=== PATIENT | male | born 1950 | race Caucasian/White ===

== ENCOUNTER 2016-04-10 16:27 | Inpatient (IN) ==
[2016-04-10] MEDS ORDERED: MOM Conc 10 ML UD.LIQ PO PRN (18:15)
[2016-04-10] MEDS ORDERED: Dextrose Gel 15 GM PO PRN ×2 (18:35)
[2016-04-10] MEDS ORDERED: D5% in Water 1,000 ML IV PRN (18:35)
[2016-04-10] MEDS ORDERED: *HR* Dextrose 50 % in Water (Syg) 50 ML SYRINGE IVP PRN (18:35)
[2016-04-10] MEDS: *HR* HYDROcodone/Acet 5/325 mg TABLET PO PRN (20:14)
[2016-04-10] MEDS: *HR* Ticagrelor 90 MG TABLET PO SCH (20:14)
[2016-04-10] MEDS: Insulin LISPRO 300 UNITS/3 ML VIAL SQ SCH (20:21)
[2016-04-10] MEDS ORDERED: Insulin DETEMIR 100 UNIT/ML per UNIT SQ ONE (21:00)
[2016-04-10] MEDS ORDERED: INSULIN ASPART 1 UNIT SQ SCH (21:00)
[2016-04-10] MEDS: 0.9 % Sodium Chloride 1,000 ML IV SCH (22:37)
[2016-04-10] MEDS: Ondansetron 4 MG/2 ML VIAL IVP PRN (22:37)
[2016-04-10] MEDS: Temazepam 15 MG CAPSULE PO PRN (22:52)
[2016-04-11] MEDS: 0.9 % Sodium Chloride 1,000 ML IV SCH ×2 (00:18→00:19)
[2016-04-11] MEDS: *HR* HYDROcodone/Acet 5/325 mg TABLET PO PRN ×3 (05:37→20:42)
[2016-04-11 05:38] LABS: Basophils % 0.2 %; Eosinophils # 0.1 K/mcL (0.0-0.6); Eosinophils % 1.3 %; Hematocrit 21.5 % (37.5-50.1); Hemoglobin 7.3 g/dL (12.9-16.9); Immature Granulocytes % 0.3 % (0-4); Lymphocytes # 0.7 K/mcL (0.6-4.6); Lymphocytes % 7.5 %; Mean Corpuscular Hemoglobin 30.9 pg (28.0-33.3); Mean Corpuscular Volume 91.1 fL (83.0-100.0); Mean Platelet Volume 10.4 fL (9.4-12.4); Monocytes # 1.2 K/mcL (0.0-1.3); Neutrophils # 7.2 K/mcL (1.6-8.9); Platelet Count 186 K/mcL (140-400); Red Blood Count 2.36 M/mcL (4.19-5.50); Red Cell Distribution Width 15.3 % (11.5-14.5); Segmented Neutrophils % 77.7 %
[2016-04-11 05:49] LABS: Calcium 7.9 mg/dL (8.6-10.8); Potassium 4.5 mEq/L (3.5-4.5)
[2016-04-11] MEDS: Folic Acid 1 MG TABLET PO SCH (08:12)
[2016-04-11] MEDS: Aspirin Enteric Coated 81 MG Tablet PO SCH (08:12)
[2016-04-11] MEDS: *HR* Ticagrelor 90 MG TABLET PO SCH ×2 (08:13→20:40)
[2016-04-11] MEDS: Furosemide 40 MG TABLET PO SCH (08:13)
[2016-04-11] MEDS: (Vit A/Vit C/Vit E/Zinc/Copper [Preservision Areds Ta) PO SCH (08:14)
[2016-04-11] MEDS: Insulin LISPRO 300 UNITS/3 ML VIAL SQ SCH ×4 (08:14→20:41)
--- NOTE | 2016-04-11 11:19 | Internal Med History&Physical ---
Date of Encounter: 04/11/16 Time of Encounter: 11:17 Assessment and Plan (1) Left displaced femoral neck fracture Current visit: No Status: Acute Patient had a femoral neck fracture was taken for ORIF after a cardiology consult. Patient was considered to be a high risk due to his multiple medical problems Internal Medicine - H&P: HPI Chief complaint: Patient had a fractured hip was taken to the OR for ORIF Admitted From: Hospital to Hospital Transfer Plans for Post Hospital Care: Home History of present illness: Mr. Todd is a 65 year old male Past Med Surg Social Fam HX - Past Medical History Medical history: CHF, diabetes, hyperlipidemia, hypertension, myocardial infarction, renal disease, thyroid disease Psychiatric history: no psych history - Social History Smoking Status: Smoker, status unknown Smokeless Tobacco Status: No (FORMER SMOKER. NOW OCCASIONAL) Alcohol use: occasionally Drug use: none - Family History Father Adopted: No Living Status: Hx Family Cardiac Disorders: Yes Internal Medicine - H&P: Meds Aspirin [Lo-Dose Aspirin EC] 81 mg PO DAILY 04/03/16 [History] Atorvastatin Calcium 80 mg PO DAILY 04/03/16 [History] Calcitriol [Rocaltrol] 0.25 mcg PO DAILY 04/03/16 [History] Clopidogrel [Plavix] 75 mg PO DAILY 04/03/16 [History] Hydralazine HCl 50 mg PO TID 04/03/16 [History] Insulin ASPART [Novolog] 0 unit SQ TID 04/03/16 [History] Insulin Glargine,Hum.rec.anlog [Lantus Solostar] 22 unit SQ HS 04/03/16 [History ] Isosorbide DInitrate [Isordil] 20 mg PO BID 04/03/16 [History] Metoprolol [Lopressor] 25 mg PO BID 04/03/16 [History] Tamsulosin HCl [Flomax] 0.4 mg PO DAILY 04/03/16 [History] Ticagrelor [Brilinta] 90 mg PO BID 04/03/16 [History] Vit A/Vit C/Vit E/Zinc/Copper [Preservision Areds Tablet] 1 each PO DAILY [History] Allopurinol [Zyloprim 100 MG] 100 mg PO DAILY #30 tablet 04/10/16 [Rx] Ferrous Sulfate 325 mg PO BIDWM #90 tablet 04/10/16 [Rx] Folic Acid 1 mg PO DAILY #60 tablet 04/10/16 [Rx] Furosemide [Lasix] 40 mg PO DAILY #30 tablet 04/10/16 [Rx] HYDROcodone/Acet 5/325 mg [[place] 5-325 mg] 1 tab PO Q4HR PRN #30 tablet [Rx] MOM Conc [MILK OF MAGNESIA conc] 5 ml PO HS PRN 30 Days 04/10/16 [Rx] Sodium Bicarbonate 650 mg PO BID #120 tablet 04/10/16 [Rx] Temazepam [Restoril] 15 mg PO HS PRN #30 capsule 04/10/16 [Rx] Allergies Penicillins [PCN] Allergy (Verified 04/03/16 06:24) Unconscious All Systems PM: A 10-system review of systems was performed and is negative for pertinent findings except as documented above in the HPI. - Constitutional Vitals: Temp Pulse Resp BP Pulse Ox 97.7 F 83 20 144/79 99 04/11/16 07:24 04/11/16 07:24 04/11/16 07:24 04/11/16 07:24 04/11/16 07:24 - Head Head exam: Present: atraumatic, normal inspection, normocephalic - Neck Neck exam general surgery: Present: supple, trachea midline. Absent: lymphadenopathy - Respiratory Respiratory exam: Present: CTAB. Absent: accessory muscle use, rales, rhonchi, wheezes - Cardiovascular Cardiovascular exam: Present: RRR, +S1, +S2. Absent: diastolic murmur, gallop, rubs, systolic murmur - GI/Abdominal GI/Abdominal exam: Present: normal bowel sounds, soft, no peritoneal signs. Absent: distended, tenderness Internal Med - H&P Results - Labs CBC & Chem 7: 04/11/16 05:15 04/11/16 05:15 Labs: Short CBC 04/11/16 Range/Units 05:15 WBC 9.2 (4.3-11.1) K/mcL Hgb 7.3 L (12.9-16.9) g/dL Hct 21.5 L (37.5-50.1) % Plt Count 186 (140-400) K/mcL Neutrophils # 7.2 (1.6-8.9) K/mcL BMP 04/11/16 05:15 Sodium 130 L Potassium 4.5 Chloride 101 Carbon Dioxide 20 BUN 67 H Creatinine 2.73 H Glucose 142 H Calcium 7.9 L Chronic renal failure as noted we will follow BUN and creatinine.
[2016-04-11] MEDS: Ondansetron 4 MG/2 ML VIAL IVP PRN (17:30)
[2016-04-11] MEDS: Insulin DETEMIR 100 UNIT/ML X5UNITS SQ SCH (20:41)
[2016-04-12] MEDS: *HR* HYDROcodone/Acet 5/325 mg TABLET PO PRN ×2 (06:47→10:44)
[2016-04-12] MEDS: Insulin LISPRO 300 UNITS/3 ML VIAL SQ SCH ×4 (08:27→20:39)
[2016-04-12] MEDS: Aspirin Enteric Coated 81 MG Tablet PO SCH (08:34)
[2016-04-12] MEDS: Folic Acid 1 MG TABLET PO SCH (08:34)
[2016-04-12] MEDS: Furosemide 40 MG TABLET PO SCH (08:34)
[2016-04-12] MEDS: *HR* Ticagrelor 90 MG TABLET PO SCH ×2 (08:34→20:34)
[2016-04-12] MEDS: (Vit A/Vit C/Vit E/Zinc/Copper [Preservision Areds Ta) PO SCH (08:34)
--- NOTE | 2016-04-12 11:51 | Internal Med Progress Note ---
Date of Encounter: 04/12/16 Time of Encounter: 11:48 - Assessment and plan (1) Left displaced femoral neck fracture Current Visit: No Status: Acute Assessment and plan: Patient's been through a lot lately with hip fracture and heart attack and kidney failure. And is very debilitated. - Time Spent With Patient less than 15 minutes - Subjective Interval history: Patient is still very weak and somewhat confused. I discussed the use of the forward catheter with his and she stated that I read the notes that he had urinary retention after surgery. It has been a month he has been seen by urologist and carbon brush maker. I think it is time to remove Zhang catheter and see and watches output. - Constitutional Vitals: Temp Pulse Resp BP Pulse Ox 98.8 F 86 18 93/52 96 04/12/16 07:35 04/12/16 07:35 04/12/16 11:00 04/12/16 07:35 04/12/16 07:35 - Head Head exam: Present: atraumatic, normal inspection, normocephalic - Neck Neck exam general surgery: Present: supple, trachea midline. Absent: lymphadenopathy - Respiratory Respiratory exam: Present: CTAB. Absent: accessory muscle use, rales, rhonchi, wheezes - Cardiovascular Cardiovascular exam: Present: RRR, +S1, +S2. Absent: diastolic murmur, gallop, rubs, systolic murmur - Skin Skin exam: Present: dry, intact, pallor (Patient has a bit of sallow color to check a bilirubin.) Internal Medicine: Result - Labs CBC & Chem 7: 04/11/16 05:15 04/11/16 05:15 Labs: the patient's patient is a stage IV chronic renal failure. Dialysis noted Consult Discharge Plan - Plan Referrals: Pina Curtis, STAFF HOME THERAPY RN [Primary Care Provider] -
[2016-04-12] MEDS: Ondansetron 4 MG/2 ML VIAL IVP PRN (11:56)
--- NOTE | 2016-04-12 12:21 | Physical Med Progress Note ---
Date of Encounter: 04/12/16 Time of Encounter: 12:16 Physical Medicine-PN: Subj Interval history: PMR PCC note Mr. Todd is s/p left THR. He is able to ambulate to therapy with a walker. He fatigues easily. Patient able to stand for 10-12 minutes. Patient with significant lower limb pitting edema. Patient has difficulty maintaining hip precautions. Currently [place] for ADLs. Patient only able to tolerate 1 hour of therapy a day. Plan to switch patient to swing for lower intensity therapy. Will continue with PT/OT/TR to address gait, safety, ADLs and endurance. Patient is severely deconditioned due to his multiple medical illnesses. - Constitutional Vitals: Vital Signs Temp Pulse Resp BP Pulse Ox 04/12/16 11:00 18 04/12/16 07:35 98.8 F 86 17 93/52 96 04/11/16 18:55 98.3 F 95 17 115/54 96 04/11/16 17:43 97.8 F 101 16 147/66 98 Intake and Output 04/11/16 04/12/16 04/12/16 23:59 07:59 15:59 Intake Total 200 / 200 500 / 500 500 / 500 Output Total 1075 / 1075 1050 / 1050 Balance -875 / -875 -550 / -550 500 / 500 Intake: Oral 200 / 200 500 / 500 500 / 500 Output: Urine 200 / 200 Catheter 875 / 875 1050 / 1050 Other: Meal Dinner Breakfast Percent of Meal Consumed 40% 50% Weight 77.156 kg Blood Glucose* 382 73 154 Patient Weight 04/12/16 23:59 Weight 77.156 kg Physical Medicine-PN: Obj Data - Labs CBC & Chem 7: 04/11/16 05:15 04/11/16 05:15 Labs: Laboratory Results - last 24 hr 04/11/16 04/11/16 04/12/16 16:38 20:30 07:14 POC Glucose 365 H 382 H 73 04/12/16 11:09 POC Glucose 154 H Consult Discharge Plan - Plan Referrals: Pina Curtis, THREAD TOOL GRINDER SET UP OPERATOR [Primary Care Provider] -
[2016-04-12] MEDS ORDERED: Ondansetron 4 MG/2 ML VIAL IVP PRN (14:19)
[2016-04-12] MEDS: Insulin DETEMIR 100 UNIT/ML X5UNITS SQ SCH (20:36)
[2016-04-12] MEDS: Temazepam 15 MG CAPSULE PO PRN (20:37)
[2016-04-13 05:54] LABS: Albumin/Globulin Ratio 0.8 (1.1-2.2); Bilirubin,Direct 0.3 mg/dL (0.0-0.5); Bilirubin,Indirect 0.4 mg/dL (0.0-1.2); Bilirubin,Total 0.7 mg/dL (0.2-1.2); Globulin 2.5 g/dL (2.4-3.5); Total Protein 4.5 g/dL (6.0-8.3)
[2016-04-13] MEDS: Aspirin Enteric Coated 81 MG Tablet PO SCH (08:21)
[2016-04-13] MEDS: *HR* Ticagrelor 90 MG TABLET PO SCH ×2 (08:21→20:53)
[2016-04-13] MEDS: Folic Acid 1 MG TABLET PO SCH (08:21)
[2016-04-13] MEDS: Furosemide 40 MG TABLET PO SCH (08:22)
[2016-04-13] MEDS: (Vit A/Vit C/Vit E/Zinc/Copper [Preservision Areds Ta) PO SCH (08:22)
[2016-04-13] MEDS: Insulin LISPRO 300 UNITS/3 ML VIAL SQ SCH ×4 (08:24→20:47)
[2016-04-13] MEDS: *HR* HYDROcodone/Acet 5/325 mg TABLET PO PRN ×2 (08:37→11:50)
--- NOTE | 2016-04-13 13:27 | Internal Med Progress Note ---
Date of Encounter: 04/13/16 Time of Encounter: 13:25 - Assessment and plan (1) Left displaced femoral neck fracture Current Visit: Yes Status: Acute Assessment and plan: She is working with PT OT and TR. - Time Spent With Patient less than 15 minutes - Subjective Interval history: Patient's much brighter today's colors better at all. I did check bilirubin it was okay. Shallow color probably just due to his multiple medical problems. Proteins were low at 4.5 and albumin was low at 2. Start him on ensure HP. - Constitutional Vitals: Temp Pulse Resp BP Pulse Ox 98.4 F 89 16 115/62 95 04/13/16 07:29 04/13/16 07:29 04/13/16 09:00 04/13/16 07:29 04/13/16 07:29 - Head Head exam: Present: atraumatic, normal inspection, normocephalic - Neck Neck exam general surgery: Present: supple, trachea midline. Absent: lymphadenopathy - Respiratory Respiratory exam: Present: CTAB. Absent: accessory muscle use, rales, rhonchi, wheezes - Cardiovascular Cardiovascular exam: Present: RRR, +S1, +S2. Absent: diastolic murmur, gallop, rubs, systolic murmur - GI/Abdominal GI/Abdominal exam: Present: normal bowel sounds, soft, no peritoneal signs. Absent: distended, tenderness Internal Medicine: Result - Labs CBC & Chem 7: 04/11/16 05:15 04/11/16 05:15 Labs: Liver Function 04/13/16 Range/Units 05:25 Total Bilirubin 0.7 (0.2-1.2) mg/dL Direct Bilirubin 0.3 (0.0-0.5) mg/dL AST 28 (5-34) Units/L ALT 26 (0-55) Units/L Alkaline Phosphatase 101 (38-126) Units/L Albumin 2.0 L (3.5-5.0) g/dL Consult Discharge Plan - Plan Referrals: Pina Curtis CNP [Primary Care Provider] -
[2016-04-13] MEDS: Insulin DETEMIR 100 UNIT/ML X5UNITS SQ SCH (20:50)
[2016-04-13] MEDS: Temazepam 15 MG CAPSULE PO PRN (20:52)
[2016-04-13] MEDS: *HR* HYDROcodone/Acet 10/325 mg TABLET PO PRN (20:53)
[2016-04-14] MEDS ORDERED: *HR* Dextrose 50 % in Water (Syg) 50 ML SYRINGE IVP STA (07:39)
[2016-04-14 08:40] LABS: Basophils % 0.2 %; Eosinophils # 0.2 K/mcL (0.0-0.6); Eosinophils % 1.4 %; Hematocrit 23.5 % (37.5-50.1); Hemoglobin 7.9 g/dL (12.9-16.9); Lymphocytes # 0.6 K/mcL (0.6-4.6); Lymphocytes % 3.9 %; Mean Corpuscular HGB Conc 33.6 g/dL (31.6-35.5); Mean Corpuscular Hemoglobin 30.9 pg (28.0-33.3); Mean Corpuscular Volume 91.8 fL (83.0-100.0); Monocytes # 1.5 K/mcL (0.0-1.3); Monocytes % 9.3 %; Neutrophils # 13.3 K/mcL (1.6-8.9); Platelet Count 296 K/mcL (140-400); Red Blood Count 2.56 M/mcL (4.19-5.50); Red Cell Distribution Width 15.8 % (11.5-14.5); Segmented Neutrophils % 84.2 %
[2016-04-14 08:46] LABS: Calcium 8.4 mg/dL (8.6-10.8)
[2016-04-14] MEDS ORDERED: D5% in Water 1,000 ML IVC ONE (09:12)
--- NOTE | 2016-04-14 10:20 | Internal Med Progress Note ---
Date of Encounter: 04/14/16 Time of Encounter: 10:17 - Subjective Interval history: Cold to the floor to evaluate patient's decreased level of consciousness. Initially his Accu-Chek was 26. He was given an amp of D50. He woke up slightly but was still confused and still had his eyes closed and moaning. Patient cannot answer questions appropriate. Respiration was even and unlabored. Occasionally he would have periods of apnea and would last for 6 seconds. Lungs was clear. Heart was regular. Abdomen was soft. He is moving all extremities. Plan is to order labs. CT head will be ordered. - Constitutional Vitals: Temp Pulse Resp BP Pulse Ox 97 F L 67 12 139/66 97 04/14/16 08:22 04/14/16 08:22 04/14/16 08:22 04/14/16 08:22 04/14/16 08:22 Internal Medicine: Result - Labs CBC & Chem 7: 04/14/16 08:15 04/14/16 08:15 Labs: Short CBC 04/14/16 Range/Units 08:15 WBC 15.8 H D (4.3-11.1) K/mcL Hgb 7.9 L (12.9-16.9) g/dL Hct 23.5 L (37.5-50.1) % Plt Count 296 D (140-400) K/mcL Neutrophils # 13.3 H (1.6-8.9) K/mcL BMP 04/14/16 08:15 Sodium 130 L Potassium 4.0 Chloride 99 Carbon Dioxide 20 BUN 63 H Creatinine 2.66 H Glucose 169 H Calcium 8.4 L Cardiac Enzymes 04/14/16 Range/Units 08:15 Troponin I 0.50 H* (0-0.03) ng/mL - VTE Documentation of Mechanical Device: Graduated compression elastic hosiery Consult Discharge Plan - Plan Referrals: Pina Curtis CNP [Primary Care Provider] -
[2016-04-14] MEDS ORDERED: Dextrose Gel 15 GM PO PRN ×2 (10:50)
[2016-04-14] MEDS ORDERED: *HR* Dextrose 50 % in Water (Syg) 50 ML SYRINGE IVP PRN (10:50)
[2016-04-14] MEDS ORDERED: D5% in Water 1,000 ML IV PRN ×2 (10:50→16:03)
--- NOTE | 2016-04-14 11:09 | Internal Med Progress Note ---
Date of Encounter: 04/14/16 Time of Encounter: 11:07 - Assessment and plan (1) Left displaced femoral neck fracture Current Visit: Yes Status: Acute Assessment and plan: Patient was high risk for repair but was successfully carried out. He has very labile as lots of medical problems but currently is resting - Time Spent With Patient 25 - 35 minutes - Subjective Interval history: Patient is a very brittle labile diabetic. Early this morning his blood sugar was 20 units decreased level of responsiveness. He was given 1 amp of D50. He did not have immediate response and therefore he received a second amp of D50. Blood sugars now about 206. Also his troponin was up to 0.5. I spoke with Dr. Vega the precision agriculture specialist that did his workup and he agreed that this had happened at least once before. Vital signs are stable were going to observe him watch vital signs and repeat the troponin. If troponin rises he will be transferred to cardiology service and edema if it stays the same or drops and will continue to monitor him here. - Constitutional Vitals: Temp Pulse Resp BP Pulse Ox 97 F L 71 22 131/65 99 04/14/16 08:22 04/14/16 09:52 04/14/16 09:23 04/14/16 09:52 04/14/16 09:52 - Head Head exam: Present: atraumatic, normal inspection, normocephalic - Neck Neck exam general surgery: Present: supple, trachea midline. Absent: lymphadenopathy - Respiratory Respiratory exam: Present: CTAB. Absent: accessory muscle use, rales, rhonchi, wheezes - Cardiovascular Cardiovascular exam: Present: RRR, +S1, +S2. Absent: diastolic murmur, gallop, rubs, systolic murmur - GI/Abdominal GI/Abdominal exam: Present: normal bowel sounds, soft, no peritoneal signs. Absent: distended, tenderness Internal Medicine: Result - Labs CBC & Chem 7: 04/14/16 08:15 04/14/16 08:15 Labs: Short CBC 04/14/16 Range/Units 08:15 WBC 15.8 H D (4.3-11.1) K/mcL Hgb 7.9 L (12.9-16.9) g/dL Hct 23.5 L (37.5-50.1) % Plt Count 296 D (140-400) K/mcL Neutrophils # 13.3 H (1.6-8.9) K/mcL BMP 04/14/16 08:15 Sodium 130 L Potassium 4.0 Chloride 99 Carbon Dioxide 20 BUN 63 H Creatinine 2.66 H Glucose 169 H Calcium 8.4 L Cardiac Enzymes 04/14/16 Range/Units 08:15 Troponin I 0.50 H* (0-0.03) ng/mL Lab is noted. Renal failure is chronic stage IV troponin was noted also. - Impressions Impressions Head CT 04/14/16 09:52 IMPRESSION: No acute intracranial abnormality. D/ / Edi Schwarz MD / Edi Schwarz MD Interpreting Provider: Edi Schwarz MD - VTE Documentation of Mechanical Device: Graduated compression elastic hosiery Consult Discharge Plan - Plan Referrals: Pina Curtis SALESPERSON SEWING MACHINES [Primary Care Provider] -
[2016-04-14] MEDS: Folic Acid 1 MG TABLET PO SCH (12:50)
[2016-04-14] MEDS: Furosemide 40 MG TABLET PO SCH (12:50)
[2016-04-14] MEDS: *HR* Ticagrelor 90 MG TABLET PO SCH ×2 (12:50→22:02)
[2016-04-14] MEDS: Aspirin Enteric Coated 81 MG Tablet PO SCH (12:50)
[2016-04-14] MEDS: (Vit A/Vit C/Vit E/Zinc/Copper [Preservision Areds Ta) PO SCH (12:51)
[2016-04-14] MEDS: *HR* HYDROcodone/Acet 10/325 mg TABLET PO PRN ×2 (12:55→22:10)
[2016-04-14] MEDS: Insulin LISPRO 300 UNITS/3 ML VIAL SQ SCH ×2 (14:05→16:36)
--- NOTE | 2016-04-14 16:16 | Electrocardiograph Report ---
[facility] Test Date: 2016-04-14 Pat Name: AMY READ Department: [id number] Room: 116 Gender: M Healthcare Consultant: CARTER : 1950 Requested By: Sumeet Carney Order Number: [id number] Reading MD: Lamar Nevarez Measurements Intervals [place] Rate: 69 P: 66 [place]: 138 QRS: -18 QRSD: 105 T: 112 QT: 433 QTc: 452 Interpretive Statements SINUS RHYTHM WITH OCCASIONAL VENTRICULAR PREMATURE COMPLEXES POSSIBLE LEFT ATRIAL ENLARGEMENT INFERIOR MYOCARDIAL INFARCTION, PROBABLY OLD Electronically Signed On 04-14-16 16:15:32 EST by Lamar Nevarez
--- NOTE | 2016-04-14 16:21 | Electrocardiograph Report ---
[facility] Test Date: 2016-04-14 Pat Name: Basil Todd Department: [id number] Room: 116 Gender: M Vending Technician: CARTER : 1950 Requested By: Sumeet Carney Order Number: [id number] Reading MD: Lamar Nevarez Measurements Intervals [place] Rate: 67 P: 71 [place]: 149 QRS: 41 QRSD: 94 T: 97 QT: 431 QTc: 447 Interpretive Statements SINUS RHYTHM POSSIBLE ANTERIOR MYOCARDIAL INFARCTION, OF INDETERMINATE AGE Electronically Signed On 04-14-16 16:18:12 EST by Lamar Nevarez
[2016-04-14] MEDS ORDERED: Insulin LISPRO 300 UNITS/3 ML VIAL SQ SCH (21:00)
[2016-04-14] MEDS: Temazepam 15 MG CAPSULE PO PRN (22:03)
[2016-04-15] MEDS ORDERED: Insulin LISPRO 300 UNITS/3 ML VIAL SQ STA (01:11)
[2016-04-15] MEDS ORDERED: Insulin Human Regular 300 UNIT/3 ML per UNIT SQ STA (01:35)
[2016-04-15] MEDS: Furosemide 40 MG TABLET PO SCH (08:20)
[2016-04-15] MEDS: Folic Acid 1 MG TABLET PO SCH (08:20)
[2016-04-15] MEDS: Aspirin Enteric Coated 81 MG Tablet PO SCH (08:21)
[2016-04-15] MEDS: *HR* Ticagrelor 90 MG TABLET PO SCH (08:22)
[2016-04-15] MEDS: Insulin LISPRO 300 UNITS/3 ML VIAL SQ SCH (08:26)
[2016-04-15] MEDS: (Vit A/Vit C/Vit E/Zinc/Copper [Preservision Areds Ta) PO SCH (08:31)
[2016-04-15] MEDS: *HR* HYDROcodone/Acet 10/325 mg TABLET PO PRN ×2 (08:38→12:42)
--- NOTE | 2016-04-15 09:26 | Internal Med Progress Note ---
Date of Encounter: 04/15/16 Time of Encounter: 09:24 - Assessment and plan (1) Hypoglycemia Current Visit: Yes Status: Acute Assessment and plan: Long acting insulin on hold. Only on sliding scale. Blood sugars 293 today. Has no further mental status change secondary to hypoglycemia (2) Elevated troponin Current Visit: Yes Status: Acute Assessment and plan: No chest pain. No EKG changes. Not trending up. Patient does not want any intervention done (3) Diabetes mellitus Current Visit: Yes Status: Chronic Qualifiers: Diabetes mellitus type: type 2 Diabetes mellitus complication status: with hypoglycemia Diabetes mellitus complication detail: without coma Diabetes mellitus residential insulin use: with residential use Qualified Code(s): E11.649 - Type 2 diabetes mellitus with hypoglycemia without coma; Z79.4 - senior living ( current) use of insulin - Time Spent With Patient 25 - 35 minutes - Subjective Interval history: Feeling much better today. No shortness of breath. No chest pain. No lethargy. Blood sugar much more controlled. Demanding to go home today. He is threatening to walk out if we do not release him. We have reached out to the and the daughter will try to come in to talk to patient into staying. - Constitutional Vitals: Temp Pulse Resp BP Pulse Ox 98.8 F 82 18 104/55 96 04/15/16 07:49 04/15/16 07:49 04/15/16 07:49 04/15/16 07:49 04/15/16 07:49 General appearance: Present: A&O X 3, no acute distress - Respiratory Respiratory exam: Present: CTAB. Absent: accessory muscle use, rales, rhonchi, wheezes - Cardiovascular Cardiovascular exam: Present: RRR, +S1, +S2. Absent: diastolic murmur, gallop, rubs, systolic murmur - GI/Abdominal GI/Abdominal exam: Present: normal bowel sounds, soft, no peritoneal signs. Absent: distended, tenderness - Extremities Exam Extremities exam: Present: warm, radial pulses palpable and symetrical. Absent : calf tenderness, cyanotic, pedal edema - Neurological Exam Neurological exam: Present: CN II-XII intact, oriented X3, no focal deficits. Absent: pronater drift, facial droop, speech deficit Internal Medicine: Result - Labs CBC & Chem 7: 04/14/16 08:15 04/14/16 08:15 Labs: Cardiac Enzymes 04/14/16 04/15/16 Range/Units 15:10 04:30 Troponin I 0.30 H* 0.31 H* (0-0.03) ng/mL - Impressions Impressions Head CT 04/14/16 09:52 IMPRESSION: No acute intracranial abnormality. D/ / Edi Schwarz MD / Edi Schwarz MD Interpreting Provider: Edi Schwarz MD - VTE Documentation of Mechanical Device: Graduated compression elastic hosiery Consult Discharge Plan - Plan Referrals: Pina Curtis, ELECTROPHYSIOLOGY SCIENTIST [Primary Care Provider] -
[2016-04-15 11:39] VITALS: BP 126/60
--- NOTE | 2016-04-17 11:59 | Discharge Summary ---
Date of Encounter: 04/15/16 Time of Encounter: 09:00 - Discharge Diagnosis (1) Hypoglycemia Priority: Secondary Status: Chronic (2) Elevated troponin Priority: Primary Status: Acute (3) Diabetes mellitus Priority: Secondary Status: Chronic Qualifiers: Diabetes mellitus type: type 2 Diabetes mellitus complication status: with hypoglycemia Diabetes mellitus complication detail: without coma Diabetes mellitus termite control representative insulin use: with termite control representative use Qualified Code(s): E11.649 - Type 2 diabetes mellitus with hypoglycemia without coma; Z79.4 - [facility] ( current) use of insulin - Discharge Medications Home Medications: Aspirin [Lo-Dose Aspirin EC] 81 mg PO DAILY 04/03/16 [History] Atorvastatin Calcium 80 mg PO DAILY 04/03/16 [History] Calcitriol [Rocaltrol] 0.25 mcg PO DAILY 04/03/16 [History] Clopidogrel [Plavix] 75 mg PO DAILY 04/03/16 [History] Hydralazine HCl 50 mg PO TID 04/03/16 [History] Insulin ASPART [Novolog] 0 unit SQ TID 04/03/16 [History] Insulin Glargine,Hum.rec.anlog [Lantus Solostar] 22 unit SQ HS 04/03/16 [History ] Isosorbide DInitrate [Isordil] 20 mg PO BID 04/03/16 [History] Metoprolol [Lopressor] 25 mg PO BID 04/03/16 [History] Tamsulosin HCl [Flomax] 0.4 mg PO DAILY 04/03/16 [History] Ticagrelor [Brilinta] 90 mg PO BID 04/03/16 [History] Vit A/Vit C/Vit E/Zinc/Copper [Preservision Areds Tablet] 1 each PO DAILY [History] Allopurinol [Zyloprim 100 MG] 100 mg PO DAILY #30 tablet 04/10/16 [Rx] Ferrous Sulfate 325 mg PO BIDWM #90 tablet 04/10/16 [Rx] Folic Acid 1 mg PO DAILY #60 tablet 04/10/16 [Rx] Furosemide [Lasix] 40 mg PO DAILY #30 tablet 04/10/16 [Rx] HYDROcodone/Acet 5/325 mg [[place] 5-325 mg] 1 tab PO Q4HR PRN #30 tablet [Rx] MOM Conc [MILK OF MAGNESIA conc] 5 ml PO HS PRN 30 Days 04/10/16 [Rx] Sodium Bicarbonate 650 mg PO BID #120 tablet 04/10/16 [Rx] Temazepam [Restoril] 15 mg PO HS PRN #30 capsule 04/10/16 [Rx] Allergies/Adverse Reactions: Allergies Penicillins [PCN] Allergy (Verified 04/03/16 06:24) Unconscious Date of admission: 04/10/16 17:50 Primary care physician: Pina Curtis CNP Consults: 04/10/16 18:09 Consult to Occupational Therapy [CONS] Routine Comment: Evaluate, develop and implement POC Consult to Physical Therapy [CONS] Routine Comment: Evaluate, develop and implement POC Consult to Recreational Therapy [CONS] Routine Comment: Evaluate, develop and implement POC Consult to Chief Ii Dispatcher [CONS] Routine Reason for SW Consult: Rehab 04/11/16 11:38 Consult to Wound Care [CONS] Routine Reason for Consult: mutilple open skin areas Time Notified: 11:39 Call Completed: Yes - Patient Status Disposition: Left Against Medical Advice - Discharge Instructions Instructions: Diabetes Mellitus Type 2 in Adults (DC), Hip Fracture (GEN) Follow Up With: Larry Vann MD [Partnered Physician] - (pts to call sunday and make follow up appt, appt was 04/13/16 at 2:15) Pina Curtis CNP [Primary Care Provider] - (to follow up in 1 week, pt to make own appointment) Hospital course: Mr. Todd is a 65 year old male who was initially admitted for rehabilitation. During his stay he had multiple episodes of hypoglycemia. He had difficulty cooperating with physical therapy. On the morning of discharge, he was adamant about going home. I spent a lot of time talking to him about finishing his rehabilitation but he refused. He demands to be sent home. His and daughter could not talk him into staying. He did agree to come back to finish his outpatient therapy. On examining him earlier he was awake and alert. Fully competent. Lungs were clear heart was regular. No abnormal neurological abnormality. He has full understanding of the risk of his decision. He signed AMA. Time spent discussing smoking cessation with patient: more than 10 minutes - Time Spent with Patient Total time spent providing and/or coordinating discharge services: Greater than 30 minutes - Constitutional Vitals: Temp Pulse Resp BP Pulse Ox 98.6 F 83 16 126/60 98 04/15/16 11:00 04/15/16 11:00 04/15/16 11:00 04/15/16 11:00 04/15/16 11:00 General appearance: Present: A&O X 3, no acute distress - VTE Documentation of Mechanical Device: Graduated compression elastic hosiery
--- NOTE | 2016-04-18 07:48 | Physician Discharge Referral ---
Home Health/Hosp Referral Info Provider in Charge Post Discharge: PCP - Diagnosis (1) Hypoglycemia Status: Chronic (2) Elevated troponin Status: Acute (3) Diabetes mellitus Status: Chronic (4) S/P revision of total hip Status: Acute - Respiratory Orders Smoking Cessation: Smoking cessation has been advised. For more information, call the [place] Tobacco Quit Line at 9-707-IXAN-NOW. - Diet/Nutrition Diet/Nutrition Orders: No Concentrated Sweets - Activity Activity Orders: Up ad parker - Services Needed Following services are medically necessary services: Nursing, Physical Therapy - Transfer Medications Home Medications: Aspirin [Lo-Dose Aspirin EC] 81 mg PO DAILY 04/03/16 [History] Atorvastatin Calcium 80 mg PO DAILY 04/03/16 [History] Calcitriol [Rocaltrol] 0.25 mcg PO DAILY 04/03/16 [History] Clopidogrel [Plavix] 75 mg PO DAILY 04/03/16 [History] Hydralazine HCl 50 mg PO TID 04/03/16 [History] Insulin ASPART [Novolog] 0 unit SQ TID 04/03/16 [History] Insulin Glargine,Hum.rec.anlog [Lantus Solostar] 22 unit SQ HS 04/03/16 [History ] Isosorbide DInitrate [Isordil] 20 mg PO BID 04/03/16 [History] Metoprolol [Lopressor] 25 mg PO BID 04/03/16 [History] Tamsulosin HCl [Flomax] 0.4 mg PO DAILY 04/03/16 [History] Ticagrelor [Brilinta] 90 mg PO BID 04/03/16 [History] Vit A/Vit C/Vit E/Zinc/Copper [Preservision Areds Tablet] 1 each PO DAILY [History] Allopurinol [Zyloprim 100 MG] 100 mg PO DAILY #30 tablet 04/10/16 [Rx] Ferrous Sulfate 325 mg PO BIDWM #90 tablet 04/10/16 [Rx] Folic Acid 1 mg PO DAILY #60 tablet 04/10/16 [Rx] Furosemide [Lasix] 40 mg PO DAILY #30 tablet 04/10/16 [Rx] HYDROcodone/Acet 5/325 mg [[place] 5-325 mg] 1 tab PO Q4HR PRN #30 tablet [Rx] MOM Conc [MILK OF MAGNESIA conc] 5 ml PO HS PRN 30 Days 04/10/16 [Rx] Sodium Bicarbonate 650 mg PO BID #120 tablet 04/10/16 [Rx] Temazepam [Restoril] 15 mg PO HS PRN #30 capsule 04/10/16 [Rx] Allergies/Adverse Reactions: Allergies Penicillins [PCN] Allergy (Verified 04/03/16 06:24) Unconscious Certification: Further, I certify that my clinical findings support that this patient is homebound (i.e. absences from home require considerable and taxing effort and are for medical reasons or christianity services or infrequently or short duration when for other reasons) because: Homebound Reason: Patient requires assistance of a person or device to safely leave home Attestation: My signature below is to certify that this patient is under my care and that I, or nurse practitioner, or a physician's sales assistant displays working with me, has a face-to -face encounter with this patient.
== END 2016-04-15 12:55 | disposition left against medical advice (07) | DRG 560 ==
LOC: INPGRE 17:50
PROVIDERS: ADMIT Internal Medicine; ATTEND Internal Medicine